=== PATIENT | female | born 1940 | race American Indian/Alaskan Native ===

== ENCOUNTER 2016-11-05 14:52 | Emergency (ER) | payer MEDICARE ==
--- NOTE | 2016-11-05 16:51 | Emergency Department Report ---
Entered by KUSHAL FERNANDEZ, acting as scribe for NILO DEVI PA. Chief Complaint: Nausea/Vomiting/Diarrhea Stated Complaint: NAUSEA/BURNING ON CHEST Time Seen by Provider: 11/05/16 16:21 - HPI History of Present Illness: 76 year old female with PMHx of DM and HTN presents to the ED with via daughter c/o nausea and dehydration for 3 days. Patient reports constipation, vomiting, dehydration, lack of energy, nausea, lack of bowel movements, inability to eat, and lower abd pain but denies dysuira, urgency, and frequency. Patient's daughter states that patient has Herniorrhaphy at [facility], but her MD wants her to get hydrated first. - ROS Review of Systems: reports constipation, vomiting, dehydration, lack of energy, nausea, lack of bowel movements, inability to eat, and lower abd pain Denies dysuira, urgency, and frequency. - Exam Vital Signs: Vital Signs 11/05/16 15:34 Temperature 97.8 F Pulse Rate 72 Respiratory 20 Rate Blood Pressure 140/74 O2 Sat by Pulse 98 Oximetry Physical Exam: Constitutional: Non toxic appearing, NAD. Cardiovascular: Normal rate and rhythm with normal S1/S2 sounds. Respiratory: No respiratory distress. Lung sounds clear to auscultation bilaterally. Abdomen: No masses, nontender to palpation on all quadrants MSE screening note: Focused history and physical exam performed. Due to findings the following was ordered: ED Medical Decision Making - Medical Decision Making Labs ordered. Patient to be possibly admitted for hydration. ED Disposition for MSE Condition: Stable This documentation as recorded by the scribe,KUSHAL FERNANDEZ,accurately reflects the service I personally performed and the decisions made by SHANDRA arnold OYINLOLA A, PA.
[2016-11-05 18:27] LABS: Basophils % (Auto) 0.7 % (0.0-1.8); Eosinophils % (Auto) 2.1 % (0.0-4.3); Hematocrit 36.6 % (30.3-42.9); Mean Corpuscular HGB Conc 33 % (30-34); Mean Corpuscular Hemoglobin 31 pg (28-32); Mean Corpuscular Volume 96 fl (79-97); Platelet Count 430 K/mm3 (140-440); Red Blood Count 3.84 M/mm3 (3.65-5.03); Red Cell Distribution Width 12.7 % (13.2-15.2); White Blood Count 8.7 K/mm3 (4.5-11.0)
[2016-11-05 18:29] LABS: BUN/Creatinine Ratio 10.62; Calcium 9.9 mg/dL (8.4-10.2); Chloride 96.5 mmol/L (98-107); Potassium 3.7 mmol/L (3.6-5.0)
[2016-11-05] MEDS ORDERED: ZOFRAN IV ONE (21:40)
[2016-11-05] MEDS ORDERED: NACL 0.9% 1000 ML 1,000 ML IV ONE (21:40)
--- NOTE | 2016-11-05 21:56 | Emergency Department Report ---
ED N/V/D HPI - General Chief complaint: Nausea/Vomiting/Diarrhea Stated complaint: NAUSEA/BURNING ON CHEST Time Seen by Provider: 11/05/16 16:32 Source: patient Mode of arrival: Ambulatory Limitations: No Limitations - History of Present Illness MD complaint: nausea, vomiting -: Gradual Description of Vomiting: food contents, watery Associated Abdominal Pain: Yes Location: diffuse Radiation: none Severity: mild Quality: cramping Consistency: constant Improves with: none Worsens with: none Associated Symptoms: nausea/vomiting, weakness. denies: myalgias, chest pain, cough, diaphoresis, fever/chills, headaches, loss of appetite, rash, dysuria, shortness of breath, syncope - Related Data Previous Rx's Medication Instructions Recorded Last Taken Type Ondansetron [Zofran Odt] 4 mg PO BID #12 tab.rapdis 11/05/16 Unknown Rx Allergies Allergy/AdvReac Type Severity Reaction Status Date / Time codeine Allergy Rash Verified 11/05/16 15:38 tramadol Allergy Rash Verified 11/05/16 15:38 ED Review of Systems ROS: Stated complaint: NAUSEA/BURNING ON CHEST Other details as noted in HPI Constitutional: denies: chills, fever Eyes: denies: eye pain, eye discharge, vision change ENT: denies: ear pain, throat pain Respiratory: denies: cough, shortness of breath, wheezing Cardiovascular: denies: chest pain, palpitations Endocrine: no symptoms reported Gastrointestinal: denies: abdominal pain, nausea, diarrhea Genitourinary: denies: urgency, dysuria, discharge Musculoskeletal: denies: back pain, joint swelling, arthralgia Skin: denies: rash, lesions Neurological: denies: headache, weakness, paresthesias Psychiatric: denies: anxiety, depression Hematological/Lymphatic: denies: easy bleeding, easy bruising ED Past Medical Hx - Past Medical History Previous Medical History?: Yes Hx Hypertension: Yes Hx Diabetes: Yes Additional medical history: Cardiac Stent x2 - Surgical History Past Surgical History?: Yes - Social History Smoking Status: Never Smoker Substance Use Type: None - Medications Home Medications: Home Medications Medication Instructions Recorded Confirmed Last Taken Type Ondansetron [Zofran Odt] 4 mg PO BID #12 tab.rapdis 11/05/16 Unknown Rx ED Physical Exam - General Limitations: No Limitations General appearance: alert, in no apparent distress - Head Head exam: Present: atraumatic, normocephalic - Eye Eye exam: Present: normal appearance, PERRL, EOMI - ENT ENT exam: Present: normal exam, normal orophraynx, mucous membranes dry - Neck Neck exam: Present: normal inspection - Respiratory Respiratory exam: Present: normal lung sounds bilaterally. Absent: respiratory distress - Cardiovascular Cardiovascular Exam: Present: regular rate, normal rhythm. Absent: systolic murmur, diastolic murmur, rubs, gallop - GI/Abdominal GI/Abdominal exam: Present: soft, normal bowel sounds - Extremities Exam Extremities exam: Present: normal inspection - Back Exam Back exam: Present: normal inspection - Neurological Exam Neurological exam: Present: alert, oriented X3 - Psychiatric Psychiatric exam: Present: normal affect, normal mood - Skin Skin exam: Present: warm, dry, intact, normal color. Absent: rash ED Course Vital Signs 11/05/16 15:34 Temperature 97.8 F Pulse Rate 72 Respiratory 20 Rate Blood Pressure 140/74 O2 Sat by Pulse 98 Oximetry ED Medical Decision Making - Lab Data Result diagrams: 11/05/16 17:46 11/05/16 17:46 - Medical Decision Making patient doing well, labs negative, will give ivf and zofran , has appointment with surgery for Friday to repair hiatal hernia,. doing well here in the ER Critical care attestation.: If time is entered above; I have spent that time in minutes in the direct care of this critically ill patient, excluding procedure time. ED Disposition Clinical Impression: Vomiting, Dehydration Disposition: DC-01 TO HOME OR SELFCARE Is pt being admited?: No Does the pt Need Aspirin: No Condition: Good Instructions: Dehydration (ED) Prescriptions: Ondansetron [Zofran Odt] 4 mg PO BID #12 tab.rapdis Time of Disposition: 22:13
[2016-11-05 22:45] VITALS: BP 166/77
[2016-11-06 01:57] LABS: Bilirubin,Urine NEG (Negative); Blood,Urine NEG (Negative); Ketones,Urine 20 mg/dL (Negative); Leukocyte Esterase,Urine SM (Negative); Mucus,Urine 1+ /HPF; Nitrite,Urine NEG (Negative)
== END 2016-11-05 22:35 | disposition home or self-care (01) ==
LOC: ED 14:52
DX: E86.0 Dehydration (principal); R11.2 Nausea with vomiting, unspecified; I10 Essential (primary) hypertension; E11.9 Type 2 diabetes mellitus without complications; Z88.5 Allergy status to narcotic agent; Z88.8 Allergy status to other drugs, medicaments and biological substances
CPT/HCPCS: 36415; 80048; 85025; 96361; 96374; 99283; J2405; J7030; 81001

== ENCOUNTER 2016-11-08 11:30 | Observation (INO) | payer MEDICARE ==
[~2016-11-08 11:30] MED LIST: ANCEF/STERILE WATER 2 GM/20 ML IV NR; DECADRON IV NR; DIFLUCAN 200 MG/100 ML BAG IV ONE; DILAUDID IV PRN; FLAGYL 500 MG/100 ML 500 MG/100 ML BAG IV NR; HEPARIN SUB-Q NR; NACL 0.9% 1000 ML 1,000 ML IV SCH; PEPCID IV NR; PEPCID PO NR; ZOFRAN IV PRN
--- NOTE | 2016-11-08 13:05 | Anesthesia Day of Surgery ---
Anesthesia Day of Surgery - Day of Surgery Patient Examined: Yes Patient H&P Reviewed: Yes Patient is NPO: Yes Beta Blockers: Yes Cardiac Clearance: Yes
--- NOTE | 2016-11-08 13:09 | Anesthesia Consultation ---
Anesthesia Consult and Med Hx Date of service: 11/08/16 - Airway ROM Head & Neck: Adequate Mental/Hyoid Distance: Adequate Mallampati Class: Class II Intubation Access Assessment: Probably Good - Pulmonary Exam CTA: Yes - Cardiac Exam Cardiac Exam: RRR - Pre-Operative Health Status ASA Pre-Surgery Classification: ASA3 Proposed Anesthetic Plan: General - Pulmonary Hx Smoking: No Hx Asthma: No Hx Sleep Apnea: No - Cardiovascular System Hx Hypertension: Yes (FOR 5+ YRS, EF 65%) Hx Coronary Artery Disease: Yes Hx Angina: Yes (CHRONIC) Hx Percutaneous Transluminal Coronary Angioplasty (PTCA): Yes (STENTS X 2006) Hx Cardia Arrhythmia: Yes (SINUS LETTY) Hx Valvular Heart Disease: Yes (AORTIC STENOSIS, MILD PER CARDS NOTE) Hx Heart Murmur: Yes - Central Nervous System Hx Seizures: No CVA: Yes (TIA 5 YRS AGO) Hx Psychiatric Problems: No - Gastrointestinal Hx Gastroesophageal Reflux Disease: Yes - Endocrine Hx Renal Disease: Yes (CKD, NOT ON DIALYSIS) Hx Liver Disease: No Hx Non-Insulin Dependent Diabetes: Yes - Hematic Hx Anemia: Yes (YRS AGO) - Other Systems Hx Cancer: No - Additional Comments Anesthesia Medical History Comments: CARDIAC CLEARANCE ON CHART
[2016-11-08] MEDS ORDERED: DILAUDID ONE (13:18)
[2016-11-08] MEDS ORDERED: DIPRIVAN 10 MG/ML IV ONE (13:19)
[2016-11-08] MEDS ORDERED: XYLOCAINE MPF 2% ONE (13:19)
[2016-11-08] MEDS ORDERED: ZEMURON IV ONE (13:19)
[2016-11-08] MEDS ORDERED: QUELICIN ONE (13:19)
[2016-11-08] MEDS ORDERED: MARCAINE-EPI 0.25%-1:200,000 INFILTRATI ONE ×2 (13:28→14:08)
[2016-11-08] MEDS ORDERED: NACL 0.9% IR ONE (14:08)
[2016-11-08] MEDS ORDERED: DIFLUCAN 200 MG/100 ML BAG IV ONE (14:08)
[2016-11-08] MEDS ORDERED: NACL 0.9% 1000 ML IR ONE (14:08)
[2016-11-08] MEDS ORDERED: NEO SYNEPHRINE ONE (14:23)
[2016-11-08] MEDS ORDERED: NACL 0.9% 100 ML ONE (14:23)
[2016-11-08] MEDS ORDERED: DECADRON ONE (16:00)
[2016-11-08] MEDS ORDERED: TORADOL ONE (16:11)
[2016-11-08] MEDS ORDERED: ZOFRAN ONE (16:11)
[2016-11-08] MEDS ORDERED: ROBINUL ONE (16:14)
[2016-11-08] MEDS ORDERED: NEOSTIGMINE ONE (16:14)
--- NOTE | 2016-11-08 16:44 | Operative Report ---
Operative Report Operative Report: OPERATIVE REPORT PRE/POST OP DX: Type 2 Paraesophageal hernia with GERD PROCEDURE: 1. Laparoscopic paraesophagael hernia repair with mesh 2. Right crura component separation with medial rotation of crura 3. Kayla fundoplication 4. Gastropexy SURGEON: Dr. Alex Olea FISH FILLETER: Dr. Delgadillo ANESTHESIA: General and local EBL: Minimal DRAIN: None SPECIMEN:None IMPLANT: Biodesign Mesh FINDINGS:As above COMPLICATIONS:None INDICATION: 76 y/o female with a symptomatic type 2 paraesophageal hernia and GERD who presents for repair. PROCEDURE: She was brought to the room, identified and general anesthesia was achieved. She was positioned and prepped and draped in the standard fashion. Prior to any incision the skin was inject with marcaine. A supraumbilical left of midline 5mm incision was made. Using a Veress needle technique the abdomen was insufflated to 15mm Hg pressure. A 5 mm trocar was inserted. Using a 30 degree 5mm telescope the other ports were placed under direct vision which included a right lateral, left lateral, and subxiphoid 5mm ports and a left subcostal 10mm port. The abdomen was explored and she was found to have a type 2 paraesophageal hernia. The stomach was retracted back into the abdominal cavity. I opened the gastrohepatic ligament with the Harmonic scalpel. The hernia sac was dissected away from the right crura and then out of the mediastinum. The pleura was very thin. It was so thin it was translucent. A small hole was made in the right pleura but because of the character of the pleura I did not close it as I did not think it would hold suture without tearing and resulting in a large defect. I took down the short gastric vessels with the Harmonic scalpel and created a retroesophageal window. I took the hernia sac off the GE junction with Harmonic disection to facilitate the placement of the fundoplication. Care was taken not to injure the vagus nerve which was running into the hernia sac on the right. I did the right crura component separation with the Harmonic scalpel which 3cm. Once the component separation was done I rotated the right crura medially.The crura were reapproximated with interupted 0 Surgidac suture. The right crura was very thin and attenuated. The left crura was thick and fibrotic. I performed a Kayla fundoplication at this point. Anesthesia advanced a 52 Fr Bougie and I [facility] the [facility] to create a 2cm fundoplication using the Endostitch device. The Bougie was removed and the fundoplication did not appear too tight, loose or low. I placed clips on the knots of the Kayla so that the location of the fundoplication radiographically if necessary at a later date. I performed a gastropexy by suturing the greater curvature of the stomach to the abdominal wall just below the 10mm port using a 0 Surgidac and a suture passer. I examined the abdomen, found good hemostasis and the anatomy in proper locations. I therefore removed the CO2 and closed the skin with 4-0 Vicryl suture, steri strips, and bandaids. He tolerated the procedure well and without complications and was transfered to the PACU in stable condition. Dr Alex Olea 11/08/16 4:40PM
[2016-11-08] MEDS ORDERED: PERCOCET 5/325 PO PRN (16:48)
[2016-11-08] MEDS ORDERED: PHENERGAN PO PRN (16:50)
[2016-11-08] MEDS ORDERED: D50W (25GM) IV PRN ×2 (16:54)
--- NOTE | 2016-11-08 17:28 | Post Anesthesia Evaluation ---
- Post Anesthesia Evaluation Patient Participated: Yes Airway Patent: Yes Stable Respiratory Function: Yes Nausea/Vomiting: No Temp > 96.8F: Yes Pain Manageable: Yes Adequeate Hydration: Yes Anesthesia Complications: No Block Receding Appropriately: Not Applicable Patient on Ventilator: No
[2016-11-08] MEDS ORDERED: ZOFRAN IV PRN (17:38)
[2016-11-08] MEDS ORDERED: XALATAN 0.005% OU SCH (18:00)
[2016-11-08] MEDS ORDERED: TRANSDERM-SCOP TD SCH ×2 (18:00→20:00)
[2016-11-08] MEDS ORDERED: NACL 0.9% 1000 ML 1,000 ML IV SCH (18:00)
[2016-11-08] MEDS ORDERED: NITROMIST TL PRN (18:30)
[2016-11-08] MEDS ORDERED: NON-FORMULARY (Dorzolamide 2% (Nf) 1 DROPS) OU SCH (22:00)
[2016-11-08] MEDS ORDERED: NON-FORMULARY (Brimonidine Tartrate [Brimonidine Tartrate 0.2%] 1 DROP) OU SCH (22:00)
[2016-11-08] MEDS ORDERED: TORADOL IV PRN (22:00)
[2016-11-09] MEDS: GLUCOPHAGE PO SCH ×2 (00:16→10:13)
[2016-11-09] MEDS: MORPHINE IV PRN ×2 (00:17→06:37)
[2016-11-09] MEDS ORDERED: HEPARIN SUB-Q SCH (06:00)
--- NOTE | 2016-11-09 09:55 | Short Stay Summary ---
Short Stay Documentation Date of service: 11/09/16 - History H&P: obtained from office - Allergies and Medications Current Medications: Allergies codeine Allergy (Verified 11/05/16 15:38) Rash tramadol Allergy (Verified 11/05/16 15:38) Rash Home Medications Medication Instructions Recorded Confirmed Last Taken Type Aspirin [Aspirin BABY CHEW TAB] 81 mg PO QDAY 11/06/16 11/06/16 10/30/16 History AtorvaSTATin [Lipitor] 80 mg PO QHS 11/06/16 11/06/16 11/07/16 History Brimonidine Tartrate [Brimonidine 1 drop OU Q12HR 11/06/16 11/06/16 11/08/16 09: 00 History Tartrate 0.2%] Dorzolamide 2% (Nf) [Trusopt (Nf)] 1 drops OU BID 11/06/16 11/06/16 11/08/16 09: 00 History ISOSORBIDE MONOnitrate [Imdur ER] 30 mg PO DAILY 11/06/16 11/06/16 11/08/16 09: 00 History Latanoprost 0.005% [Xalatan 0.005%] 1 drop OP QPM 11/06/16 11/06/16 11/07/16 History Metoprolol [Lopressor TAB] 50 mg PO QDAY 11/06/16 11/06/16 11/08/16 09:00 History Nitroglycerin [place] [Nitromist] 1 spray TL PRN PRN 11/06/16 11/08/16 3 Months Ago History Ondansetron [Zofran Odt] 4 mg PO BID PRN 11/06/16 11/06/16 11/07/16 History Pantoprazole [Protonix] 40 mg PO QDAY 11/06/16 11/06/16 11/08/16 09:00 History Promethazine [Phenergan] 25 mg VA Q6HR PRN 11/06/16 11/06/16 11/05/16 History Scopolamine [Transderm-Scop] 1 each TD Q3D 11/06/16 11/06/16 11/05/16 History metFORMIN [Glucophage] 500 mg PO BID 11/06/16 11/06/16 11/07/16 History Active Medications Aspirin (Baby Aspirin) 81 mg PO QDAY DANNY Atorvastatin Calcium (Lipitor) 80 mg PO QHS [facility] Last Admin: 11/09/16 00:17 Dose: 80 mg Dextrose (D50w (25gm)) 50 ml IV PRN PRN PRN Reason: Hypoglycemia Dextrose (D50w (25gm)) 50 ml IV PRN PRN PRN Reason: Hypoglycemia Heparin Sodium (Porcine) (Heparin) 5,000 unit SUB-Q Q8HR [facility] Last Admin: 11/09/16 06:38 Dose: 5,000 unit Sodium Chloride (Nacl 0.9% 1000 Ml) 1,000 mls @ 75 mls/hr IV DIRECT [facility] Last Admin: 11/08/16 13:25 Dose: 75 mls/hr Sodium Chloride (Nacl 0.9% 1000 Ml) 1,000 mls @ 75 mls/hr IV DIRECT [facility] Last Admin: 11/08/16 17:57 Dose: 75 mls/hr Insulin Human Regular (Novolin R) 0 units SUB-Q ACHS DANNY PRN Reason: Protocol Last Admin: 11/09/16 06:40 Dose: Not Given Isosorbide Mononitrate (Imdur) 30 mg PO DAILY [facility] Ketorolac Tromethamine (Toradol) 30 mg IV Q6H PRN PRN Reason: Pain, Moderate (4-6) Stop: 11/13/16 21:59 Latanoprost (Xalatan 0.005%) 1 drops OU QPM [facility] Metformin HCl (Glucophage) 500 mg PO BID [facility] Last Admin: 11/09/16 00:16 Dose: 500 mg Metoprolol Tartrate (Lopressor) 50 mg PO QDAY [facility] Miscellaneous Medication (Brimonidine Tartrate [Brimonidine Tartrate 0.2%]) 1 drop OU Q12HR [facility] Miscellaneous Medication (Dorzolamide 2% (Nf)) 1 drops OU BID [facility] Morphine Sulfate (Morphine) 4 mg IV Q3H PRN PRN Reason: Pain , Severe (7-10) Last Admin: 11/09/16 06:37 Dose: 4 mg Nitroglycerin (Nitromist) 1 spray TL PRN PRN PRN Reason: Chest Pain Ondansetron HCl (Zofran) 4 mg IV Q4H PRN PRN Reason: Nausea And Vomiting Oxycodone/Acetaminophen (Percocet 5/325) 2 tab PO Q4H PRN PRN Reason: Pain, Moderate (4-6) Promethazine HCl (Phenergan) 25 mg PO Q6H PRN PRN Reason: Nausea And Vomiting - Physical exam General appearance: no acute distress Heart: Regular rate Gastrointestinal: normal, tenderness (incisional), no distended, no guarding Neurological: Normal speech - Hospital course Hospital course: unremarkable - Disposition Condition at discharge: Stable Disposition: DC- TO HOME OR SELFCARE Short Stay Discharge Plan Diet: other (soft only) Wound: open to air, keep clean and dry Follow up with: VARGHESE FLETCHER MD [Primary Care Provider] - 7 Days NATALIIA SERNA MD [Staff Physician] - 7 Days Prescriptions: oxyCODONE /ACETAMINOPHEN [Percocet 5/325 mg] 2 tab PO Q4H PRN #30 tablet PRN Reason: Pain, Moderate (4-6) Promethazine [Phenergan TAB] 25 mg PO Q6H PRN #30 tablet PRN Reason: Nausea And Vomiting
[2016-11-09] MEDS ORDERED: LOPRESSOR PO SCH (10:00)
[2016-11-09] MEDS ORDERED: IMDUR PO SCH (10:00)
[2016-11-09] MEDS ORDERED: BABY ASPIRIN PO SCH (10:00)
[2016-11-09 10:17] VITALS: BP 117/59
--- NOTE | 2016-11-09 10:28 | Progress Note ---
Subjective Date of service: 11/09/16 Interval history: Patient is doing well. No anesthetic related complaints. Objective - Constitutional Vitals: Vital Signs - 12hr 11/08/16 11/09/16 11/09/16 22:53 00:10 05:59 Temperature 97.5 F L 97.7 F Pulse Rate Pulse Rate [ 71 65 Right From Monitor] Respiratory 18 18 Rate Blood Pressure Blood Pressure 123/68 137/70 [Left Arm] O2 Sat by Pulse 97 98 Oximetry 11/09/16 11/09/16 11/09/16 08:29 10:14 10:16 Temperature Pulse Rate 60 60 Pulse Rate [ Right From Monitor] Respiratory Rate Blood Pressure 117/59 117/59 Blood Pressure [Left Arm] O2 Sat by Pulse 98 Oximetry - Labs Labs: Abnormal lab results 11/08/16 11/08/16 Range/Units 13:22 16:38 POC Glucose 116 H 184 H (70-105)
== END 2016-11-09 12:35 | disposition home or self-care (01) ==
LOC: OR 11:30 → 2B-SURG 17:03
PROVIDERS: ADMIT Surgery; ATTEND Surgery
DX: K44.9 Diaphragmatic hernia without obstruction or gangrene (principal); K21.9 Gastro-esophageal reflux disease without esophagitis; I25.119 Atherosclerotic heart disease of native coronary artery with unspecified angina pectoris; E11.22 Type 2 diabetes mellitus with diabetic chronic kidney disease; I12.9 Hypertensive chronic kidney disease with stage 1 through stage 4 chronic kidney disease, or unspecified chronic kidney disease; N18.9 Chronic kidney disease, unspecified; Z86.73 Personal history of transient ischemic attack (TIA), and cerebral infarction without residual deficits; Z98.61 Coronary angioplasty status
CPT/HCPCS: 43282; 82962; 96372; 96374; 96375; 96376; A9270; C1781; G0378; J0330; J0690; J1100; J1170; J1450; J1644; J1885; J2270; J2370; J2405; J2704; J2710; J7030; J1815